=== PATIENT | male | born 2000 | race Hispanic/Latino ===

== ENCOUNTER 2021-04-15 07:21 | Emergency (ER) | payer OTHER ==
[~2021-04-15] VITALS: Ht 167.6 cm; Wt 88.2 kg
[2021-04-15] MEDS ORDERED: NS 1,000 ML IV ONE (08:10)
[2021-04-15] MEDS ORDERED: ONDANSETRON 4MG/2ML VIAL IV ONE (08:10)
[2021-04-15 08:16] LABS: BASO % 0.6 % (0.0-1.0); EOS # 0.1 10^3/uL (0.0-0.5); EOS % 1.1 % (0.0-3.0); HEMATOCRIT 51.2 % (42.0-52.0); HEMOGLOBIN 17.4 g/dl (13.5-17.5); LYMPH % 28.2 % (24.0-44.0); MEAN CORPUSCULAR HEMOGLOBIN 31.1 pg (27.0-33.0); MEAN CORPUSCULAR VOLUME 91.6 fl (80.0-96.0); MONO # 0.3 10^3/uL (0.0-0.8); MONO % 4.9 % (2.0-8.0); NEUTROPHILS # 4.5 10^3/uL (1.5-8.5); NEUTROPHILS % 64.6 % (36.0-66.0); PLATELET COUNT, AUTOMATED 299 10^3/uL (150-450); RED BLOOD COUNT 5.59 10^6/uL (4.30-6.10)
[2021-04-15 08:42] LABS: ERYTHROCYTE SEDIMENTATION RATE 1 mm/hr (0-15)
[2021-04-15 08:44] LABS: ALBUMIN 4.9 GM/DL (3.2-5.2); ALT/SGPT 28 U/L (12-78); BILIRUBIN,DIRECT 0.1 MG/DL (0.0-0.2); BILIRUBIN,TOTAL 0.3 MG/DL (0.2-1.0); C REACTIVE PROTEIN QUANTITATIV < 0.30 MG/DL (0.00-0.30); LIPASE 83 U/L (73-393); TOTAL PROTEIN 9.2 GM/DL (6.4-8.2)
[2021-04-15 10:10] VITALS: BP 120/76
== END 2021-04-15 10:16 | disposition home or self-care (01) ==
LOC: M ED 07:21
DX: K92.1 Melena (principal)
CPT/HCPCS: 36415; 80047; 80076; 83690; 85025; 85652; 86140; 96361; 96374; 99284; J2405